=== PATIENT | female | born 1955 | race Caucasian/White ===

== ENCOUNTER 2017-10-18 08:59 | Emergency (ER) | payer OTHER, BC ==
[~2017-10-18] VITALS: Ht 167.6 cm; Wt 74.8 kg
[2017-10-18] MEDS ORDERED: ACETAMINOPHEN 500 MG TAB (TYLENOL) ONE (09:15)
[2017-10-18] MEDS ORDERED: L.E.T. SYRINGE 5 ML TOP ONE (09:15)
[2017-10-18] MEDS ORDERED: ACETAMINOPHEN 500 MG TAB (TYLENOL) PO ONE (09:15)
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
[2017-10-18 11:43] VITALS: BP 140/65
== END 2017-10-18 11:43 | disposition home or self-care (01) ==
LOC: EDBD 09:01 → ER 09:01
DX: S01.112A Laceration without foreign body of left eyelid and periocular area, initial encounter (principal); S01.81XA Laceration without foreign body of other part of head, initial encounter; S61.216A Laceration without foreign body of right little finger without damage to nail, initial encounter; S80.02XA Contusion of left knee, initial encounter; F32.9 Major depressive disorder, single episode, unspecified; Z98.84 Bariatric surgery status; V11.4XXA Pedal cycle driver injured in collision with other pedal cycle in traffic accident, initial encounter
CPT/HCPCS: 70450; 70486; 72125; 73562